=== PATIENT | male | born 1985 | race Caucasian/White ===

== ENCOUNTER 2018-04-17 22:44 | Emergency (ER) | payer OTHER ==
[~2018-04-17] VITALS: Ht 180.3 cm; Wt 64.9 kg
[2018-04-17 22:53] VITALS: Ht 180.3 cm; Wt 64.9 kg
[2018-04-17 23:33] VITALS: BP 125/71
== END 2018-04-17 23:33 | disposition other institution (70) ==
LOC: ED 22:44
DX: Z02.89 Encounter for other administrative examinations (principal)

== ENCOUNTER 2018-06-28 20:42 | Emergency (ER) | payer OTHER ==
[~2018-06-28] VITALS: Ht 180.3 cm; Wt 68.0 kg
[2018-06-28 20:47] VITALS: BP 132/71; Ht 180.3 cm; Wt 68.0 kg
== END 2018-06-28 22:35 | disposition left against medical advice (07) ==
LOC: ED 20:42
DX: F41.9 Anxiety disorder, unspecified (principal); Z76.0 Encounter for issue of repeat prescription

== ENCOUNTER 2018-08-02 00:19 | Emergency (ER) | payer OTHER ==
[~2018-08-02] VITALS: Ht 180.3 cm; Wt 70.4 kg
[2018-08-02 00:35] VITALS: Ht 180.3 cm; Wt 70.4 kg
[2018-08-02 01:35] VITALS: BP 125/82
== END 2018-08-02 01:35 | disposition home or self-care (01) ==
LOC: ED 00:19
DX: J20.9 Acute bronchitis, unspecified (principal); F41.9 Anxiety disorder, unspecified
CPT/HCPCS: Q0092

== ENCOUNTER 2018-08-31 23:58 | Emergency (ER) | payer OTHER ==
[~2018-08-31] VITALS: Ht 180.3 cm; Wt 70.8 kg
[2018-09-01 00:12] VITALS: BP 141/74; Ht 180.3 cm; Wt 70.8 kg
== END 2018-09-01 01:25 | disposition left against medical advice (07) ==
LOC: ED 23:58
DX: Z53.21 Procedure and treatment not carried out due to patient leaving prior to being seen by health care provider (principal)

== ENCOUNTER 2018-09-02 12:23 | Emergency (ER) | payer OTHER ==
[~2018-09-02] VITALS: Ht 180.3 cm; Wt 69.9 kg
[2018-09-02 12:30] VITALS: Ht 180.3 cm; Wt 69.9 kg
[2018-09-02 13:59] VITALS: BP 127/78
== END 2018-09-02 13:59 | disposition home or self-care (01) ==
LOC: ED 12:23
DX: S61.412D Laceration without foreign body of left hand, subsequent encounter (principal); L08.9 Local infection of the skin and subcutaneous tissue, unspecified; F41.9 Anxiety disorder, unspecified; X58.XXXD Exposure to other specified factors, subsequent encounter
CPT/HCPCS: Q0092

== ENCOUNTER 2018-10-22 17:19 | Emergency (ER) | payer OTHER ==
[~2018-10-22] VITALS: Ht 180.3 cm; Wt 67.6 kg
[2018-10-22 17:25] VITALS: BP 125/82; Ht 180.3 cm; Wt 67.6 kg
== END 2018-10-22 18:09 | disposition home or self-care (01) ==
LOC: ED 17:19
DX: S01.81XD Laceration without foreign body of other part of head, subsequent encounter (principal); F41.9 Anxiety disorder, unspecified; X58.XXXD Exposure to other specified factors, subsequent encounter

== ENCOUNTER 2018-11-18 22:52 | Emergency (ER) | payer OTHER ==
[~2018-11-18] VITALS: Ht 180.3 cm; Wt 72.6 kg
[2018-11-18 22:53] VITALS: Ht 180.3 cm; Wt 72.6 kg
[2018-11-18 23:50] VITALS: BP 124/98
== END 2018-11-18 23:50 | disposition other institution (70) ==
LOC: ED 22:52
DX: Z02.89 Encounter for other administrative examinations (principal)

== ENCOUNTER 2018-11-21 10:50 | Emergency (ER) | payer OTHER ==
[~2018-11-21] VITALS: Ht 180.3 cm; Wt 69.5 kg
[2018-11-21 10:56] VITALS: Ht 180.3 cm; Wt 69.5 kg
[2018-11-21 12:03] VITALS: BP 130/82
== END 2018-11-21 12:14 | disposition home or self-care (01) ==
LOC: ED 10:50
DX: R07.89 Other chest pain (principal); G89.29 Other chronic pain; F17.210 Nicotine dependence, cigarettes, uncomplicated; F41.9 Anxiety disorder, unspecified
CPT/HCPCS: 99406

== ENCOUNTER 2018-11-24 14:17 | Emergency (ER) | payer OTHER ==
[~2018-11-24] VITALS: Ht 180.3 cm; Wt 68.7 kg
[2018-11-24 14:24] VITALS: BP 129/74
== END 2018-11-24 15:15 | disposition left against medical advice (07) ==
LOC: ED 14:17
DX: Z53.21 Procedure and treatment not carried out due to patient leaving prior to being seen by health care provider (principal)

== ENCOUNTER 2019-03-02 19:56 | Emergency (ER) | payer OTHER | END 2019-03-02 20:48 | disposition left against medical advice (07) | LOC: ED 19:56 | DX: Z53.21 Procedure and treatment not carried out due to patient leaving prior to being seen by health care provider (principal) ==

== ENCOUNTER 2019-10-06 19:25 | Emergency (ER) | payer OTHER ==
[~2019-10-06] VITALS: Ht 180.3 cm; Wt 70.3 kg
[2019-10-06 19:31] VITALS: Ht 180.3 cm; Wt 70.3 kg
== END 2019-10-06 19:53 | disposition other institution (70) ==
LOC: ED 19:25
DX: Z02.89 Encounter for other administrative examinations (principal)

== ENCOUNTER 2020-05-14 17:26 | Emergency (ER) | payer OTHER ==
[~2020-05-14] VITALS: Ht 180.3 cm; Wt 71.7 kg
[2020-05-14 17:46] VITALS: BP 136/86; Ht 180.3 cm; Wt 71.7 kg
== END 2020-05-15 04:12 | disposition left against medical advice (07) ==
LOC: ED 17:26
DX: Z53.21 Procedure and treatment not carried out due to patient leaving prior to being seen by health care provider (principal)